=== PATIENT | female | born 1955 | race Caucasian/White ===

== ENCOUNTER 2018-02-06 19:52 | Emergency (ER) | payer SELFPAY ==
[2018-02-06] MEDS ORDERED: Tetan/Diph/Pertus SYR(Tdap)* 0.5 ML SYR(BOOSTRIX) use SYR IM ONE (20:14)
[2018-02-06] MEDS ORDERED: Ibuprofen TAB* 400 MG PO ONE (20:14)
--- NOTE | 2018-02-06 20:20 | ED ---
Laceration/Wound HPI - HPI Summary HPI Summary: Patient is a 62 y/o F w/ c/o right facial laceration onsetting today a couple of hours ago. She was at [facility] when she fell from her car to paved parking lot and curb. Patient had a single crutch at the time which she was using due to her trendelenburg gait. People who saw her fall said that she might have experienced LOC for a minute or two, but upon waking she was alert and oriented. Patient was bleeding profusely at the time, she denies neck pain and being on blood thinners. COX is denied, some jaw discomfort and pain at site of injury is noted. On triage, pain is rated 2/10, nothing is noted to aggravate/ alleviate Sx. Patient takes medication for depression. She denies alcohol and drug usage, reports usually smoking 5-6 cigarettes a day. Patient had hip replacement surgery. Due to complications during this surgery, she developed trendelenburg gait. Home medications and allergies reviewed. Last tetanus shot was "in forever". - History of Current Complaint Stated Complaint: FALL/HEAD LAC Time Seen by Provider: 02/06/18 20:06 Hx Obtained From: Patient Onset/Duration: Lasting Hours, Still Present Current Severity: Mild - 2/10 Pain Intensity: 2 Pain Scale Used: 0-10 Numeric - 2/10 Associated Signs & Symptoms: Pain - jaw discomfort and pain at site of injury - Allergy/Home Medications Allergies/Adverse Reactions: Allergies Allergy/AdvReac Type Severity Reaction Status Date / Time No Known Allergies Allergy Verified 02/06/18 20:02 Home Medications: Home Medications OXcarbazepine [Trileptal 150 mg] 150 mg PO BEDTIME 02/06/18 [History Confirmed 02/06/18] buPROPion HCl [Bupropion HCl Xl] 300 mg PO DAILY 02/06/18 [History Confirmed ] PMH/Surg Hx/FS Hx/Imm Hx Endocrine/Hematology History: Denies: Hx Diabetes, Hx Thyroid Disease Cardiovascular History: Denies: Hx Hypertension Respiratory History: Denies: Hx Asthma, Hx Chronic Obstructive Pulmonary Disease (COPD) GI History: Denies: Hx Ulcer - Cancer History Hx Chemotherapy: No Hx Radiation Therapy: No - Surgical History Surgery Procedure, Year, and Place: Knee replacement. Hip replacement. colonectomy Infectious Disease History: Yes Infectious Disease History: Denies: Hx Clostridium Difficile, Hx Hepatitis, Hx Human Immunodeficiency Virus (HIV), Hx Shingles, Hx Tuberculosis, Traveled Outside the [place] in Last 30 Days - Family History Known Family History: Negative: Blood Disorder - Social History Alcohol Use: None Substance Use Type: Reports: None Smoking Status (MU): Heavy Every Day Tobacco Smoker Review of Systems Positive: Other - jaw discomfort Positive: Other - right facial laceration Positive: Syncope - according to bystanders, patient may have LOC for a minute or two, alert and orientedx3 in room . Negative: Headache All Other Systems Reviewed And Are Negative: Yes Physical Exam - Summary Physical Exam Summary: Appearance: Well appearing, no pain distress Skin: warm, dry, reflects adequate perfusion; 1.5 cm laceration above lateral aspect of right brow w/ abrasion above right infraorbital zygoma Head/face: normal; normal occlusion Eyes: EOMI, SACHIN ENT: normal Neck: supple, non-tender Respiratory: CTA, breath sounds present Cardiovascular: RRR, pulses symmetrical Abdomen: non-tender, soft Bowel Sounds: present Musculoskeletal: strength/ROM intact; Trembelenberg gait is present Neuro: normal, sensory motor intact, A&Ox3 Triage Information Reviewed: Yes Vital Signs On Initial Exam: Initial Vitals Pulse BP Pulse Ox 85 125/88 95 02/06/18 19:59 02/06/18 19:59 02/06/18 19:59 Vital Signs Reviewed: Yes Procedures - Procedure Summary Procedure Summary: Facial laceration repair: laceration was cleaned with copious water and soap, 1 cc of lido 1% used for analgesia, laceration was 1 cm in length, linear, a single 5.0 Nylon horizontal mattress suture was used to close the wound. It is dressed with bacitracin ointment. She tolerated this well without complication. Diagnostics - Vital Signs Vital Signs Temp Pulse Resp BP Pulse Ox 02/06/18 20:01 82 96 02/06/18 20:00 99.6 F 76 16 125/88 95 02/06/18 19:59 85 125/88 95 - Laboratory Lab Statement: Any lab studies that have been ordered have been reviewed, and results considered in the medical decision making process. Re-Evaluation - Re-Evaluation First Eval Re-Evaluation Time: 20:36 Change: Improved Comment: Stitches received from Dr. Will. Patient will be discharged to home and given follow up instructions. She is agreeable with this plan. Laceration Repair Course/Dx - Course Course Of Treatment: Minor laceration repaired here. Facial abrasion without underlying step-off. Normal occlusion. No indication for CT at this point. Not on blood thinner. - Differential Dx Differental Diagnoses: Other - Intracranial injury, facial fracture - Clinical Impression Provider Diagnoses: Facial laceration, Facial abrasion, Closed head injury Discharge - Sign-Out/Discharge Documenting (check all that apply): Patient Departure - discharge - Discharge Plan Condition: Improved Disposition: HOME Patient Education Materials: Head Injury (ED), Facial Laceration (ED) Referrals: Jr Sidhu MD [Primary Care Provider] - Additional Instructions: Keep area dressed with bacitracin ointment. Apply this twice per day after taking off the old ointment. Return for suture removal in 7 days' time. This can be done here, in the urgent care or by your doctor. Return with severe headaches, vomiting, new symptoms or other concerns as discussed. - Billing Disposition and Condition Condition: IMPROVED Disposition: Home - Attestation Statements Document Initiated by Scribe: Yes Documenting Scribe: Ish Mcgrath Provider For Whom Scribe is Documenting (Include Credential): Lai Will MD Scribe Attestation: IIsh, scribed for Lai Will MD on 02/07/18 at 0632. Scribe Documentation Reviewed: Yes Provider Attestation: The documentation as recorded by the docibIsh kingston accurately reflects the service I personally performed and the decisions made by me, Lai Will MD
[2018-02-06 20:38] VITALS: BP 142/87
== END 2018-02-06 20:50 | disposition home or self-care (01) ==
LOC: ED 19:52
DX: S01.81XA Laceration without foreign body of other part of head, initial encounter (principal); S09.90XA Unspecified injury of head, initial encounter; W17.89XA Other fall from one level to another, initial encounter; Y93.89 Activity, other specified; Y92.481 Parking lot as the place of occurrence of the external cause; Z23 Encounter for immunization; Z96.659 Presence of unspecified artificial knee joint; Z96.649 Presence of unspecified artificial hip joint; F17.200 Nicotine dependence, unspecified, uncomplicated
CPT/HCPCS: 12011; 90471; 90715; 99282; A9270-GY

== ENCOUNTER 2022-10-27 06:22 | Inpatient (IN) ==
[~2022-10-27 06:22] MED LIST: Buffered Lidocaine 1% SYRIN 1 ml INTRADERM ONE; Lactated Ringers 1000 ml BAG 1,000 ML IV SCH; Naloxone 0.4 mg VIAL 0.4 mg/ml 1 ml VIAL IV PRN; Ondansetron 4 mg VIAL 2 MG/ML 2 ml VIAL IV PRN; fentaNYL 100 mcg/2 ml 50 MCG/ML VIAL IV PRN
[2022-10-27] MEDS ORDERED: ceFAZolin 2 GM in NS PREMIX 2 GM/100 ML BAG IVPB ONE (06:44)
[2022-10-27 07:23] LABS: Rapid COVID-19 Molecular Undetected (Undetected)
[2022-10-27] MEDS ORDERED: ROPIVACAINE 5 MG/ML 30 ML BTL (0.5%) ONE (07:27)
[2022-10-27] MEDS ORDERED: Tranexamic Acid 1,000 MG in NS 0.9% 50 ML IV ONE ×2 (08:00→10:30)
[2022-10-27] MEDS ORDERED: Midazolam 2 mg/2 ml VIAL 1 mg/ml 2 ml VIAL (2 mg) ONE ×2 (08:04→08:51)
[2022-10-27] MEDS ORDERED: Propofol 0 MG/0 ML BTL ONE (08:04)
[2022-10-27] MEDS ORDERED: fentaNYL 100 mcg/2 ml 50 MCG/ML VIAL ONE ×3 (08:53→11:41)
[2022-10-27] MEDS ORDERED: Lidocaine 2% PF 5 ML VIAL ONE (09:03)
[2022-10-27] MEDS ORDERED: Propofol 10 MG/ML 20 ML BTL ONE (09:03)
[2022-10-27] MEDS ORDERED: Rocuronium 50 mg VIAL 10 mg/ml 5 ml VIAL (50 mg) ONE (09:04)
[2022-10-27] MEDS ORDERED: Dexamethasone IV 4 MG/ML VIAL 1 ml VIAL ONE (09:33)
[2022-10-27] MEDS ORDERED: Acetaminophen IV 1 GM/100ML 1,000 MG/100 ML BAG IV ONE (09:43)
[2022-10-27] MEDS ORDERED: Ketamine HCL 50 mg/ml 10 ml VIAL (500 MG) ONE (09:45)
[2022-10-27] MEDS ORDERED: Ondansetron 4 mg VIAL 2 MG/ML 2 ml VIAL ONE (09:56)
[2022-10-27] MEDS ORDERED: Glycopyrrolate IV 0.2 MG/ML 1 ML VIAL ONE (10:36)
[2022-10-27] MEDS ORDERED: Morphine 2 MG/ML SYRINGE IV PRN (11:32)
[2022-10-27] MEDS ORDERED: Ondansetron ODT 4 mg TAB 4 MG TAB PO PRN (11:32)
[2022-10-27] MEDS ORDERED: Ondansetron 4 mg VIAL 2 MG/ML 2 ml VIAL IV PRN (11:32)
[2022-10-27] MEDS ORDERED: Lactulose 30 ml UDC PO PRN (11:32)
[2022-10-27] MEDS ORDERED: Magnesium Hydroxide LIQ 30 ML UDC PO PRN (11:32)
[2022-10-27] MEDS ORDERED: Albuterol HFA INHALER 8 gm MDI INH PRN (13:39)
[2022-10-27] MEDS: Lactated Ringers 1000 ml BAG 1,000 ML IV SCH (14:35)
[2022-10-27] MEDS: Polyethylene Glycol 3350 17 GM PACKET PO SCH (17:21)
[2022-10-27] MEDS: ceFAZolin 1 GM ADVAN 1 GM in NS 0.9% 50 ML 50 ML IVPB SCH (17:22)
[2022-10-27] MEDS: DULoxetine DR 60 mg CAP PO SCH (22:08)
[2022-10-27] MEDS: Magnesium Hydroxide LIQ 30 ML UDC PO SCH (22:09)
[2022-10-28] MEDS: Lactated Ringers 1000 ml BAG 1,000 ML IV SCH (00:35)
[2022-10-28] MEDS: ceFAZolin 1 GM ADVAN 1 GM in NS 0.9% 50 ML 50 ML IVPB SCH ×2 (02:24→10:02)
[2022-10-28 06:44] LABS: Mean Platelet Volume 6.5 fL (7.5-11.2); Platelet Count 156 10^3/uL (150-450)
[2022-10-28 07:32] LABS: Calcium 8.6 mg/dL (8.6-10.3); Creatinine, Serum 0.54 mg/dL (0.51-0.95); Potassium 4.2 mmol/L (3.5-5.0); eGFR CKD-EPI 100.2 (>60)
[2022-10-28] MEDS: Lidocaine PATCH 5% PATCH TRANSDERM SCH (08:29)
[2022-10-28] MEDS: Vitamin THERAPEUTIC TAB PO SCH (08:29)
[2022-10-28] MEDS: Polyethylene Glycol 3350 17 GM PACKET PO SCH (08:29)
[2022-10-28] MEDS: Magnesium Hydroxide LIQ 30 ML UDC PO SCH ×2 (08:34→22:39)
[2022-10-28] MEDS: DULoxetine DR 60 mg CAP PO SCH (22:38)
[2022-10-29 06:22] LABS: Hematocrit 27.1 % (35-45); Hemoglobin 9.5 g/dL (11.5-14.3); Mean Platelet Volume 6.7 fL (7.5-11.2); Platelet Count 128 10^3/uL (150-450)
[2022-10-29] MEDS: Vitamin THERAPEUTIC TAB PO SCH (08:17)
[2022-10-29] MEDS: Lidocaine PATCH 5% PATCH TRANSDERM SCH (08:17)
[2022-10-29] MEDS: Polyethylene Glycol 3350 17 GM PACKET PO SCH (08:21)
[2022-10-29] MEDS: Magnesium Hydroxide LIQ 30 ML UDC PO SCH ×2 (08:22→20:24)
[2022-10-29] MEDS: DULoxetine DR 60 mg CAP PO SCH (20:21)
[2022-10-30 05:56] LABS: Hematocrit 25.8 % (35-45); Hemoglobin 9.1 g/dL (11.5-14.3); Mean Platelet Volume 6.8 fL (7.5-11.2); Platelet Count 140 10^3/uL (150-450)
[2022-10-30] MEDS: Polyethylene Glycol 3350 17 GM PACKET PO SCH (12:56)
[2022-10-30] MEDS: Magnesium Hydroxide LIQ 30 ML UDC PO SCH (12:56)
[2022-10-30] MEDS: Lidocaine PATCH 5% PATCH TRANSDERM SCH (13:00)
[2022-10-30] MEDS: Vitamin THERAPEUTIC TAB PO SCH (13:03)
[2022-10-30] MEDS: DULoxetine DR 60 mg CAP PO SCH (19:50)
[2022-10-31 06:28] LABS: Hematocrit 25.1 % (35-45); Hemoglobin 8.9 g/dL (11.5-14.3); Platelet Count 152 10^3/uL (150-450)
[2022-10-31] MEDS: Vitamin THERAPEUTIC TAB PO SCH (09:13)
[2022-10-31] MEDS: Polyethylene Glycol 3350 17 GM PACKET PO SCH (09:13)
[2022-10-31] MEDS: Lidocaine PATCH 5% PATCH TRANSDERM SCH (09:13)
[2022-10-31] MEDS: DULoxetine DR 60 mg CAP PO SCH (21:10)
[2022-11-01 06:16] LABS: Hematocrit 25.5 % (35-45); Hemoglobin 9.1 g/dL (11.5-14.3); Mean Platelet Volume 6.6 fL (7.5-11.2); Platelet Count 202 10^3/uL (150-450)
[2022-11-01] MEDS: Lidocaine PATCH 5% PATCH TRANSDERM SCH (09:07)
[2022-11-01] MEDS: Vitamin THERAPEUTIC TAB PO SCH (09:09)
[2022-11-01] MEDS: Polyethylene Glycol 3350 17 GM PACKET PO SCH (09:10)
[2022-11-01 10:10] LABS: Rapid COVID-19 Molecular Undetected (Undetected)
[2022-11-01 10:57] VITALS: BP 150/71
== END 2022-11-01 14:55 | DRG 470 ==
LOC: SSU 06:22 → OR 06:22 → OBSVTOIN 11:32
PROVIDERS: ADMIT Orthopaedic Surgery Adult Reconstructive Orthopaedic Surgery; ATTEND Orthopaedic Surgery Adult Reconstructive Orthopaedic Surgery

== ENCOUNTER 2022-11-21 11:00 | Inpatient (IN) ==
[2022-11-21] MEDS ORDERED: Morphine 4 MG/ML VIAL (1 ml) IV ONE (13:12)
[2022-11-21 13:35] LABS: ABS Eosinophils 0.1 10^3/uL (0.0-0.5); ABS Lymphocytes 1.4 10^3/uL (1.0-4.8); ABS Monocytes 0.6 10^3/uL (0.0-0.9); ABS Neutrophils 4.1 10^3/uL (1.5-7.6); Eosinophil % 0.9 %; Hemoglobin 10.8 g/dL (11.5-14.3); Lymphocyte % 22.9 %; Mean Corpuscular Hgb Conc 33.9 g/dL (31-36); Mean Corpuscular Volume 94.4 fL (80-97); Mean Platelet Volume 6.5 fL (7.5-11.2); Platelet Count 231 10^3/uL (150-450); Red Blood Count 3.38 10^6/uL (3.63-4.92); Red Cell Distribution Width 14.5 % (12-17); White Blood Count 6.2 10^3/uL (3.8-11.8)
[2022-11-21 13:56] LABS: Activated Partial Thrombo Time 30.6 seconds (26.0-38.0); INR 1.18 (0.88-1.18)
[2022-11-21 14:00] LABS: Albumin 3.7 g/dL (3.2-5.2); Calcium 9.3 mg/dL (8.6-10.3); Potassium 4.1 mmol/L (3.5-5.0); Total Bilirubin 0.8 mg/dL (0.2-1.0)
[2022-11-21 14:06] LABS: Albumin/Globulin Ratio 1.2 (1-3); Creatinine, Serum 0.49 mg/dL (0.51-0.95); Globulin 3.1 g/dL (2-4); Total Protein 6.8 g/dL (6.4-8.9); eGFR CKD-EPI 102.6 (>60)
[2022-11-21] MEDS ORDERED: Enoxaparin 30 MG/0.3 ML SYR SUBCUT SCH (15:00)
[2022-11-21] MEDS ORDERED: Polyethylene Glycol 3350 BTL 238 GM BTL PO SCH (15:00)
[2022-11-21] MEDS ORDERED: Senna TAB 8.6 mg TAB PO PRN (16:42)
[2022-11-21] MEDS: DULoxetine DR 60 mg CAP PO SCH (21:09)
[2022-11-21 22:31] LABS: Urine Appearance Clear; Urine Bilirubin Negative (Negative); Urine Blood Negative (Negative); Urine Color Yellow; Urine Glucose Negative (Negative); Urine Ketones Negative (Negative); Urine Nitrite Negative (Negative); Urine Protein Negative (Negative); Urine Specific Gravity 1.014 (1.002-1.030); Urine Urobilinogen Negative (Negative)
[2022-11-22] MEDS: Morphine 2 MG/ML SYRINGE IV PRN ×3 (01:17→13:37)
[2022-11-22 06:47] LABS: ABS Eosinophils 0.1 10^3/uL (0.0-0.5); ABS Lymphocytes 1.7 10^3/uL (1.0-4.8); ABS Monocytes 0.4 10^3/uL (0.0-0.9); ABS Neutrophils 1.9 10^3/uL (1.5-7.6); ABS Nucleated RBC 0.01 10^3/ul; Eosinophil % 2.8 %; Hemoglobin 9.5 g/dL (11.5-14.3); Lymphocyte % 41.2 %; Mean Corpuscular Hemoglobin 33.4 pg (27-33); Mean Corpuscular Hgb Conc 35.3 g/dL (31-36); Mean Corpuscular Volume 94.6 fL (80-97); Mean Platelet Volume 7.1 fL (7.5-11.2); Nucleated Red Blood Cells % 0.2 /100 WBC (0.0-0.4); Platelet Count 189 10^3/uL (150-450); Red Blood Count 2.85 10^6/uL (3.63-4.92); Red Cell Distribution Width 14.3 % (12-17); White Blood Count 4.2 10^3/uL (3.8-11.8)
[2022-11-22] MEDS: Heparin 5000 UNITS/ML 1 mL VIAL SUBCUT SCH ×3 (08:54→22:43)
[2022-11-22] MEDS ORDERED: Polyethylene Glycol 3350 17 GM PACKET PO SCH (09:00)
[2022-11-22] MEDS: Polyethylene Glycol 3350 17 GM PACKET PO PRN (16:06)
[2022-11-22] MEDS ORDERED: Senna TAB 8.6 mg TAB PO PRN (17:22)
[2022-11-22] MEDS: DULoxetine DR 60 mg CAP PO SCH (22:30)
[2022-11-23] MEDS ORDERED: Buffered Lidocaine 1% SYRIN 1 ml INTRADERM ONE (06:00)
[2022-11-23] MEDS: Morphine 2 MG/ML SYRINGE IV PRN ×2 (06:14→09:29)
[2022-11-23 06:27] LABS: ABS Eosinophils 0.1 10^3/uL (0.0-0.5); ABS Lymphocytes 1.7 10^3/uL (1.0-4.8); ABS Monocytes 0.3 10^3/uL (0.0-0.9); ABS Neutrophils 1.6 10^3/uL (1.5-7.6); ABS Nucleated RBC 0.01 10^3/ul; Eosinophil % 3.8 %; Hematocrit 29.5 % (35-45); Hemoglobin 10.2 g/dL (11.5-14.3); Lymphocyte % 44.5 %; Mean Corpuscular Hemoglobin 32.2 pg (27-33); Mean Corpuscular Hgb Conc 34.5 g/dL (31-36); Mean Corpuscular Volume 93.4 fL (80-97); Mean Platelet Volume 7.1 fL (7.5-11.2); Nucleated Red Blood Cells % 0.1 /100 WBC (0.0-0.4); Platelet Count 212 10^3/uL (150-450); Red Blood Count 3.16 10^6/uL (3.63-4.92); Red Cell Distribution Width 13.9 % (12-17); White Blood Count 3.8 10^3/uL (3.8-11.8)
[2022-11-23 06:29] LABS: INR 1.23 (0.88-1.18)
[2022-11-23 06:58] LABS: Calcium 9.1 mg/dL (8.6-10.3); Creatinine, Serum 0.54 mg/dL (0.51-0.95); Potassium 3.9 mmol/L (3.5-5.0); eGFR CKD-EPI 100.2 (>60)
[2022-11-23] MEDS ORDERED: Prochlorperazine 5 mg/ml 2 ml VIAL (10 mg) IV PRN (07:54)
[2022-11-23] MEDS ORDERED: fentaNYL 100 mcg/2 ml 50 MCG/ML VIAL IV PRN (07:54)
[2022-11-23] MEDS ORDERED: Morphine 4 MG/ML VIAL (1 ml) IV PRN (07:54)
[2022-11-23] MEDS ORDERED: Naloxone 0.4 mg VIAL 0.4 mg/ml 1 ml VIAL IV PRN (07:54)
[2022-11-23] MEDS ORDERED: Acetaminophen IV 1 GM/100ML 1,000 MG/100 ML BAG IV ONE (13:53)
[2022-11-23] MEDS ORDERED: fentaNYL 100 mcg/2 ml 50 MCG/ML VIAL ONE ×2 (14:17→17:57)
[2022-11-23] MEDS ORDERED: Midazolam 2 mg/2 ml VIAL 1 mg/ml 2 ml VIAL (2 mg) ONE (14:17)
[2022-11-23] MEDS ORDERED: Lidocaine 2% PF 5 ML VIAL ONE (14:17)
[2022-11-23] MEDS ORDERED: Ondansetron 4 mg VIAL 2 MG/ML 2 ml VIAL ONE ×3 (14:18→22:48)
[2022-11-23] MEDS ORDERED: Propofol 10 MG/ML 20 ML BTL ONE ×3 (14:18→19:53)
[2022-11-23] MEDS ORDERED: ceFAZolin 2 GM in NS PREMIX 2 GM/100 ML BAG IVPB ONE (14:55)
[2022-11-23] MEDS ORDERED: Ketamine HCL 50 mg/ml 10 ml VIAL (500 MG) ONE (16:03)
[2022-11-23] MEDS ORDERED: Rocuronium 50 mg VIAL 10 mg/ml 5 ml VIAL (50 mg) ONE ×2 (16:47→18:21)
[2022-11-23] MEDS ORDERED: Dexamethasone IV 4 MG/ML VIAL 1 ml VIAL ONE (17:21)
[2022-11-23] MEDS ORDERED: Phenylephrine 40 mcg/mL 10mL (400mcg) SYRINGE ONE (18:43)
[2022-11-23] MEDS ORDERED: HYDROmorphone 0.5 MG/0.5 ML SYRINGE ONE ×2 (19:34→20:46)
[2022-11-23 21:32] LABS: Hematocrit 32.1 % (35-45); Hemoglobin 10.9 g/dL (11.5-14.3)
[2022-11-23] MEDS ORDERED: Prochlorperazine 5 mg/ml 2 ml VIAL (10 mg) ONE (21:47)
[2022-11-23] MEDS ORDERED: Ondansetron 4 mg VIAL 2 MG/ML 2 ml VIAL IV ONE (22:49)
[2022-11-23] MEDS: DULoxetine DR 60 mg CAP PO SCH (23:52)
[2022-11-24] MEDS: Lactated Ringers 1000 ml BAG 1,000 ML IV SCH ×2 (00:30→09:16)
[2022-11-24] MEDS: ceFAZolin 1 GM in Dextrose 1 GM/50 ML BAG IVPB SCH ×3 (02:00→19:10)
[2022-11-24] MEDS: Morphine 2 MG/ML SYRINGE IV PRN (04:56)
[2022-11-24 06:25] LABS: ABS Lymphocytes 0.6 10^3/uL (1.0-4.8); ABS Monocytes 0.4 10^3/uL (0.0-0.9); ABS Neutrophils 8.8 10^3/uL (1.5-7.6); Hematocrit 29.5 % (35-45); Hemoglobin 10.1 g/dL (11.5-14.3); Lymphocyte % 6.3 %; Mean Corpuscular Hemoglobin 31.5 pg (27-33); Mean Corpuscular Hgb Conc 34.3 g/dL (31-36); Mean Corpuscular Volume 91.9 fL (80-97); Mean Platelet Volume 7.5 fL (7.5-11.2); Platelet Count 226 10^3/uL (150-450); Red Blood Count 3.21 10^6/uL (3.63-4.92); Red Cell Distribution Width 15.6 % (12-17); White Blood Count 9.8 10^3/uL (3.8-11.8)
[2022-11-24 06:51] LABS: Albumin/Globulin Ratio 1.2 (1-3); Calcium 8.4 mg/dL (8.6-10.3); Creatinine, Serum 0.62 mg/dL (0.51-0.95); Globulin 2.6 g/dL (2-4); Magnesium 1.6 mg/dL (1.9-2.7); Potassium 4.3 mmol/L (3.5-5.0); Total Bilirubin 0.9 mg/dL (0.2-1.0); Total Protein 5.6 g/dL (6.4-8.9); eGFR CKD-EPI 96.9 (>60)
[2022-11-24] MEDS ORDERED: Magnesium Sulf 4 GM/100 ML IV 4,000 MG/100 ML BAG IVPB ONE (07:45)
[2022-11-24] MEDS: Senna TAB 8.6 mg TAB PO SCH ×2 (09:27→20:04)
[2022-11-24] MEDS: Enoxaparin 40 MG/0.4 ML SYR SUBCUT SCH (11:04)
[2022-11-24] MEDS: DULoxetine DR 60 mg CAP PO SCH (20:03)
[2022-11-25 06:05] LABS: ABS Eosinophils 0.1 10^3/uL (0.0-0.5); ABS Lymphocytes 1.4 10^3/uL (1.0-4.8); ABS Monocytes 0.6 10^3/uL (0.0-0.9); ABS Neutrophils 3.8 10^3/uL (1.5-7.6); Eosinophil % 1.6 %; Hematocrit 20.4 % (35-45); Hemoglobin 7.2 g/dL (11.5-14.3); Lymphocyte % 24.5 %; Mean Corpuscular Hgb Conc 35.4 g/dL (31-36); Mean Corpuscular Volume 90.6 fL (80-97); Mean Platelet Volume 7.2 fL (7.5-11.2); Platelet Count 155 10^3/uL (150-450); Red Blood Count 2.25 10^6/uL (3.63-4.92); Red Cell Distribution Width 14.7 % (12-17); White Blood Count 5.9 10^3/uL (3.8-11.8)
[2022-11-25 06:21] LABS: Calcium 7.9 mg/dL (8.6-10.3); Creatinine, Serum 0.61 mg/dL (0.51-0.95); Magnesium 2.1 mg/dL (1.9-2.7); Potassium 4.4 mmol/L (3.5-5.0); eGFR CKD-EPI 97.3 (>60)
[2022-11-25 10:43] LABS: Folate 12.7 ng/mL (5.90-24.80)
[2022-11-25] MEDS ORDERED: Cyanocobalamin INJ 1,000 MCG/ML VIAL 1 ML VIAL IM ONE (11:51)
[2022-11-25] MEDS: Enoxaparin 40 MG/0.4 ML SYR SUBCUT SCH (12:51)
[2022-11-25] MEDS: DULoxetine DR 60 mg CAP PO SCH (21:16)
[2022-11-25] MEDS: Senna TAB 8.6 mg TAB PO SCH (21:16)
[2022-11-26 10:00] LABS: Hematocrit 22.1 % (35-45); Hemoglobin 7.6 g/dL (11.5-14.3); Mean Corpuscular Hemoglobin 32.2 pg (27-33); Mean Corpuscular Hgb Conc 34.2 g/dL (31-36); Mean Platelet Volume 6.8 fL (7.5-11.2); Platelet Count 187 10^3/uL (150-450); Red Blood Count 2.35 10^6/uL (3.63-4.92); Red Cell Distribution Width 14.6 % (12-17); White Blood Count 6.1 10^3/uL (3.8-11.8)
[2022-11-26] MEDS: Enoxaparin 40 MG/0.4 ML SYR SUBCUT SCH (13:15)
[2022-11-26] MEDS: DULoxetine DR 60 mg CAP PO SCH (20:28)
[2022-11-26] MEDS: Senna TAB 8.6 mg TAB PO SCH (22:44)
[2022-11-27 06:05] LABS: Hematocrit 23.2 % (35-45); Hemoglobin 7.9 g/dL (11.5-14.3); Mean Corpuscular Hemoglobin 32.7 pg (27-33); Mean Corpuscular Hgb Conc 34.3 g/dL (31-36); Mean Corpuscular Volume 95.3 fL (80-97); Red Blood Count 2.43 10^6/uL (3.63-4.92); Red Cell Distribution Width 14.4 % (12-17); White Blood Count 6.9 10^3/uL (3.8-11.8)
[2022-11-27 06:06] LABS: ABS Eosinophils 0.2 10^3/uL (0.0-0.5); ABS Lymphocytes 2.2 10^3/uL (1.0-4.8); ABS Monocytes 0.6 10^3/uL (0.0-0.9); ABS Neutrophils 3.8 10^3/uL (1.5-7.6); ABS Nucleated RBC 0.01 10^3/ul; Eosinophil % 3.3 %; Lymphocyte % 32.4 %; Nucleated Red Blood Cells % 0.1 /100 WBC (0.0-0.4)
[2022-11-27 06:22] LABS: CO2 Carbon Dioxide 30 mmol/L (22-32); Calcium 8.3 mg/dL (8.6-10.3); Chloride 102 mmol/L (101-111); Sodium 138 mmol/L (135-145)
[2022-11-27 06:26] LABS: Anion Gap 6 mmol/L (2-16)
[2022-11-27 06:28] LABS: Blood Urea Nitrogen 7 mg/dL (6-24); Creatinine, Serum 0.38 mg/dL (0.51-0.95); Glucose 93 mg/dL (70-100); eGFR CKD-EPI 109.1 (>60)
[2022-11-27 07:17] LABS: Mean Platelet Volume 7.5 fL (7.5-11.2); Platelet Count 208 10^3/uL (150-450)
[2022-11-27 11:42] LABS: Rapid COVID-19 Molecular Undetected (Undetected)
[2022-11-27] MEDS: Enoxaparin 40 MG/0.4 ML SYR SUBCUT SCH (13:17)
[2022-11-27] MEDS: Polyethylene Glycol 3350 17 GM PACKET PO PRN (20:57)
[2022-11-27] MEDS: DULoxetine DR 60 mg CAP PO SCH (20:59)
[2022-11-27] MEDS: Senna TAB 8.6 mg TAB PO SCH (21:00)
[2022-11-27] MEDS: Albuterol HFA INHALER 8 gm MDI INH PRN (22:07)
[2022-11-28 06:01] LABS: Hemoglobin 6.9 g/dL (11.5-14.3); Mean Corpuscular Hemoglobin 32.6 pg (27-33); Mean Corpuscular Hgb Conc 34.4 g/dL (31-36); Mean Corpuscular Volume 94.7 fL (80-97); Mean Platelet Volume 6.7 fL (7.5-11.2); Platelet Count 226 10^3/uL (150-450); Red Blood Count 2.12 10^6/uL (3.63-4.92); Red Cell Distribution Width 14.8 % (12-17); White Blood Count 5.1 10^3/uL (3.8-11.8)
[2022-11-28] MEDS: Albuterol HFA INHALER 8 gm MDI INH PRN (08:33)
[2022-11-28 16:07] LABS: Hematocrit 27.9 % (35-45); Hemoglobin 9.4 g/dL (11.5-14.3)
[2022-11-28] MEDS: Polyethylene Glycol 3350 17 GM PACKET PO PRN (19:59)
[2022-11-28] MEDS: DULoxetine DR 60 mg CAP PO SCH (20:00)
[2022-11-28] MEDS: Senna TAB 8.6 mg TAB PO SCH (20:01)
[2022-11-28 22:07] LABS: Hematocrit 25.7 % (35-45); Hemoglobin 8.6 g/dL (11.5-14.3)
[2022-11-29 06:09] LABS: Hematocrit 25.9 % (35-45); Hemoglobin 8.9 g/dL (11.5-14.3); Mean Corpuscular Hemoglobin 32.4 pg (27-33); Mean Corpuscular Hgb Conc 34.2 g/dL (31-36); Mean Corpuscular Volume 94.7 fL (80-97); Mean Platelet Volume 6.7 fL (7.5-11.2); Platelet Count 268 10^3/uL (150-450); Red Blood Count 2.73 10^6/uL (3.63-4.92); Red Cell Distribution Width 15.2 % (12-17); White Blood Count 5.8 10^3/uL (3.8-11.8)
[2022-11-29] MEDS: Albuterol HFA INHALER 8 gm MDI INH PRN (07:15)
[2022-11-29] MEDS ORDERED: Enoxaparin 40 MG/0.4 ML SYR SUBCUT SCH (10:30)
[2022-11-29 10:39] VITALS: BP 110/43
== END 2022-11-29 13:15 | DRG 481 ==
LOC: EDHOLD 11:00 → ED 11:00 → SUATTDRO 14:46 → OBSVTOIN 14:46 → SUATTDRO 14:47 → EDHOLD 23:58 → MED 11-22 00:43 → SSU 11-23 23:02
PROVIDERS: ADMIT Internal Medicine; ATTEND Internal Medicine

== ENCOUNTER 2022-12-08 10:42 | Inpatient (IN) ==
[~2022-12-08 10:42] MED LIST changes: +Dexamethasone IV 4 MG/ML VIAL 1 ml VIAL IV SLOW PU ONE; +Famotidine IV 10 MG/ML 2 ml VIAL (20 mg) IV ONE; -Naloxone 0.4 mg VIAL 0.4 mg/ml 1 ml VIAL IV PRN; -Ondansetron 4 mg VIAL 2 MG/ML 2 ml VIAL IV PRN; -fentaNYL 100 mcg/2 ml 50 MCG/ML VIAL IV PRN
[2022-12-08] MEDS ORDERED: Dexamethasone IV 4 MG/ML VIAL 1 ml VIAL ONE ×2 (11:11→15:00)
[2022-12-08] MEDS ORDERED: Famotidine IV 10 MG/ML 2 ml VIAL (20 mg) ONE (11:11)
[2022-12-08] MEDS ORDERED: ceFAZolin 2 GM in NS PREMIX 2 GM/100 ML BAG IVPB ONE (11:12)
[2022-12-08 11:28] LABS: Rapid COVID-19 Molecular Undetected (Undetected)
[2022-12-08 11:33] LABS: Hematocrit 32.1 % (35-45); Hemoglobin 10.6 g/dL (11.5-14.3); Mean Corpuscular Hemoglobin 31.1 pg (27-33); Mean Corpuscular Hgb Conc 33.1 g/dL (31-36); Mean Corpuscular Volume 94.2 fL (80-97); Mean Platelet Volume 6.1 fL (7.5-11.2); Platelet Count 513 10^3/uL (150-450); Red Blood Count 3.41 10^6/uL (3.63-4.92); Red Cell Distribution Width 14.6 % (12-17)
[2022-12-08 11:34] LABS: ABS Basophils 0.1 10^3/uL (0.0-0.1); ABS Eosinophils 0.2 10^3/uL (0.0-0.5); ABS Lymphocytes 1.2 10^3/uL (1.0-4.8); ABS Monocytes 0.3 10^3/uL (0.0-0.9); ABS Neutrophils 4.2 10^3/uL (1.5-7.6); Lymphocyte % 20.2 %; Nucleated Red Blood Cells % 0.1 /100 WBC (0.0-0.4)
[2022-12-08 11:39] LABS: INR 1.13 (0.88-1.18)
[2022-12-08] MEDS ORDERED: Bupivacaine 0.5% 50 ML MDV VIAL ONE (13:25)
[2022-12-08] MEDS ORDERED: Lidocaine 2% PF 5 ML VIAL ONE (13:47)
[2022-12-08] MEDS ORDERED: Propofol 10 MG/ML 20 ML BTL ONE (13:47)
[2022-12-08] MEDS ORDERED: fentaNYL 100 mcg/2 ml 50 MCG/ML VIAL ONE ×3 (13:48→18:23)
[2022-12-08] MEDS ORDERED: Midazolam 2 mg/2 ml VIAL 1 mg/ml 2 ml VIAL (2 mg) ONE (13:48)
[2022-12-08] MEDS ORDERED: Rocuronium 50 mg VIAL 10 mg/ml 5 ml VIAL (50 mg) ONE ×2 (13:48→15:46)
[2022-12-08] MEDS ORDERED: Ondansetron 4 mg VIAL 2 MG/ML 2 ml VIAL ONE (15:00)
[2022-12-08] MEDS ORDERED: Acetaminophen IV 1 GM/100ML 1,000 MG/100 ML BAG IV ONE (15:00)
[2022-12-08] MEDS ORDERED: Phenylephrine 40 mcg/mL 10mL (400mcg) SYRINGE ONE (15:00)
[2022-12-08] MEDS ORDERED: HYDROmorphone 0.5 MG/0.5 ML SYRINGE ONE ×3 (15:22→17:24)
[2022-12-08] MEDS ORDERED: Vancomycin 1,000 MG VIAL ONE (17:03)
[2022-12-08] MEDS ORDERED: fentaNYL 100 mcg/2 ml 50 MCG/ML VIAL IV PRN (17:23)
[2022-12-08] MEDS ORDERED: Naloxone 0.4 mg VIAL 0.4 mg/ml 1 ml VIAL IV PRN (17:23)
[2022-12-08] MEDS ORDERED: Ondansetron 4 mg VIAL 2 MG/ML 2 ml VIAL IV PRN (17:56)
[2022-12-08] MEDS ORDERED: Lactulose 30 ml UDC PO PRN (17:56)
[2022-12-08] MEDS ORDERED: Magnesium Hydroxide LIQ 30 ML UDC PO PRN (17:56)
[2022-12-08] MEDS ORDERED: Albuterol HFA INHALER 8 gm MDI INH PRN (18:10)
[2022-12-08] MEDS ORDERED: Lidocaine PATCH 5% PATCH TRANSDERM PRN (18:10)
[2022-12-08] MEDS ORDERED: DULoxetine DR 60 mg CAP PO SCH (21:00)
[2022-12-08] MEDS: Enoxaparin 40 MG/0.4 ML SYR SUBCUT SCH (21:21)
[2022-12-08] MEDS: Magnesium Hydroxide LIQ 30 ML UDC PO SCH (22:36)
[2022-12-08] MEDS: ceFAZolin 1 GM ADVAN 1 GM in NS 0.9% 50 ML 50 ML IVPB SCH (23:47)
[2022-12-08] MEDS: Lactated Ringers 1000 ml BAG 1,000 ML IV SCH (23:52)
[2022-12-09] MEDS: Ondansetron ODT 4 mg TAB 4 MG TAB PO PRN (00:56)
[2022-12-09] MEDS: Morphine 2 MG/ML SYRINGE IV PRN ×3 (04:43→20:03)
[2022-12-09 07:31] LABS: Hematocrit 20.9 % (35-45); Hemoglobin 7.1 g/dL (11.5-14.3); Mean Platelet Volume 6.5 fL (7.5-11.2); Platelet Count 438 10^3/uL (150-450)
[2022-12-09 07:45] LABS: Calcium 8.2 mg/dL (8.6-10.3); Creatinine, Serum 0.5 mg/dL (0.51-0.95); Potassium 4.5 mmol/L (3.5-5.0); eGFR CKD-EPI 102.1 (>60)
[2022-12-09] MEDS: ceFAZolin 1 GM ADVAN 1 GM in NS 0.9% 50 ML 50 ML IVPB SCH ×2 (08:07→16:40)
[2022-12-09] MEDS ORDERED: NON FORMULARY MED (Multivitamin Tablet) PO SCH (09:00)
[2022-12-09] MEDS: Polyethylene Glycol 3350 17 GM PACKET PO PRN (09:09)
[2022-12-09] MEDS: Vitamin THERAPEUTIC TAB PO SCH (09:11)
[2022-12-09] MEDS: Magnesium Hydroxide LIQ 30 ML UDC PO SCH ×2 (09:11→20:04)
[2022-12-09] MEDS: Lactated Ringers 1000 ml BAG 1,000 ML IV SCH (10:05)
[2022-12-09 11:47] LABS: Hematocrit 20.9 % (35-45)
[2022-12-09] MEDS ORDERED: Lidocaine PATCH 5% PATCH TRANSDERM PRN (14:34)
[2022-12-09] MEDS ORDERED: Ferric Gluconate IV 250 MG in NS 0.9% 250 ml 200 ML IVPB ONE (16:30)
[2022-12-09] MEDS ORDERED: Enoxaparin 40 MG/0.4 ML SYR SUBCUT SCH (18:00)
[2022-12-09] MEDS: DULoxetine DR 30 mg CAP PO SCH (20:02)
[2022-12-09] MEDS: Enoxaparin 40 MG/0.4 ML SYR SUBCUT SCH (20:03)
[2022-12-10] MEDS: Ondansetron ODT 4 mg TAB 4 MG TAB PO PRN (06:32)
[2022-12-10 06:57] LABS: Hematocrit 18.9 % (35-45); Hemoglobin 6.5 g/dL (11.5-14.3); Mean Platelet Volume 6.2 fL (7.5-11.2); Platelet Count 378 10^3/uL (150-450)
[2022-12-10] MEDS: Magnesium Hydroxide LIQ 30 ML UDC PO SCH ×2 (08:29→20:09)
[2022-12-10] MEDS: Vitamin THERAPEUTIC TAB PO SCH (08:29)
[2022-12-10] MEDS: Polyethylene Glycol 3350 17 GM PACKET PO PRN (08:36)
[2022-12-10 19:26] LABS: Hematocrit 22.1 % (35-45); Hemoglobin 7.5 g/dL (11.5-14.3)
[2022-12-10] MEDS: DULoxetine DR 30 mg CAP PO SCH (20:04)
[2022-12-10] MEDS: Enoxaparin 40 MG/0.4 ML SYR SUBCUT SCH (20:05)
[2022-12-11] MEDS: Ondansetron ODT 4 mg TAB 4 MG TAB PO PRN ×2 (02:36→23:55)
[2022-12-11 05:57] LABS: Hematocrit 22.2 % (35-45); Hemoglobin 7.6 g/dL (11.5-14.3); Mean Platelet Volume 6.5 fL (7.5-11.2); Platelet Count 337 10^3/uL (150-450)
[2022-12-11] MEDS: Magnesium Hydroxide LIQ 30 ML UDC PO SCH ×2 (07:53→20:28)
[2022-12-11] MEDS ORDERED: Pneumococcal Vac 23-Polyvalent IM ONE (09:00)
[2022-12-11] MEDS: Vitamin THERAPEUTIC TAB PO SCH (09:57)
[2022-12-11] MEDS: DULoxetine DR 30 mg CAP PO SCH (20:27)
[2022-12-11] MEDS: Enoxaparin 40 MG/0.4 ML SYR SUBCUT SCH (20:28)
[2022-12-12 07:52] LABS: Hematocrit 22.6 % (35-45); Hemoglobin 7.6 g/dL (11.5-14.3); Mean Platelet Volume 6.2 fL (7.5-11.2); Platelet Count 341 10^3/uL (150-450)
[2022-12-12] MEDS: Magnesium Hydroxide LIQ 30 ML UDC PO SCH ×2 (08:12→20:30)
[2022-12-12] MEDS: Vitamin THERAPEUTIC TAB PO SCH (08:12)
[2022-12-12] MEDS ORDERED: Ferric Gluconate IV 250 MG in NS 0.9% 250 ml 200 ML IVPB ONE (09:00)
[2022-12-12] MEDS: Polyethylene Glycol 3350 17 GM PACKET PO PRN (20:29)
[2022-12-12] MEDS: DULoxetine DR 30 mg CAP PO SCH (20:29)
[2022-12-13 06:21] LABS: Hematocrit 23.6 % (35-45); Hemoglobin 8.1 g/dL (11.5-14.3); Mean Platelet Volume 6.5 fL (7.5-11.2); Platelet Count 364 10^3/uL (150-450)
[2022-12-13] MEDS: Ondansetron ODT 4 mg TAB 4 MG TAB PO PRN (06:39)
[2022-12-13] MEDS ORDERED: Ferric Gluconate IV 250 MG in NS 0.9% 250 ml 200 ML IVPB ONE (08:02)
[2022-12-13] MEDS: Vitamin THERAPEUTIC TAB PO SCH (08:47)
[2022-12-13] MEDS: Magnesium Hydroxide LIQ 30 ML UDC PO SCH ×3 (08:47→20:10)
[2022-12-13] MEDS: Polyethylene Glycol 3350 17 GM PACKET PO PRN (08:59)
[2022-12-13] MEDS: DULoxetine DR 30 mg CAP PO SCH (20:09)
[2022-12-13] MEDS: Lidocaine PATCH 5% PATCH TRANSDERM PRN (20:21)
[2022-12-14] MEDS ORDERED: Ferric Gluconate IV 250 MG in NS 0.9% 250 ml 200 ML IVPB ONE (07:38)
[2022-12-14] MEDS: Polyethylene Glycol 3350 17 GM PACKET PO PRN (09:07)
[2022-12-14] MEDS: Vitamin THERAPEUTIC TAB PO SCH (09:09)
[2022-12-14] MEDS: Magnesium Hydroxide LIQ 30 ML UDC PO SCH (09:10)
[2022-12-14 10:06] LABS: Rapid COVID-19 Molecular Undetected (Undetected)
[2022-12-14] MEDS: Lidocaine PATCH 5% PATCH TRANSDERM PRN (13:04)
[2022-12-14 14:24] VITALS: BP 102/56
== END 2022-12-14 14:45 | DRG 482 ==
LOC: OR 10:42 → EDSTATUS 12:45 → SSU 20:00
PROVIDERS: ADMIT Orthopaedic Surgery; ATTEND Orthopaedic Surgery